=== PATIENT | male | born 1990 | race Caucasian/White ===

== ENCOUNTER 2017-05-13 09:26 | Emergency (ER) | payer SELFPAY ==
[~2017-05-13] VITALS: Ht 170.2 cm; Wt 77.3 kg
[2017-05-13] MEDS ORDERED: PRILOSEC 20MG20 MG PO (10:37)
[2017-05-13 11:01] VITALS: BP 123/68
== END 2017-05-13 10:55 | disposition home or self-care (01) ==
LOC: ED 09:26
DX: K21.9 Gastro-esophageal reflux disease without esophagitis (principal); R07.9 Chest pain, unspecified